=== PATIENT | female | born 1970 ===

== ENCOUNTER 2019-03-01 19:32 | Emergency (ER) | payer OTHER ==
--- NOTE | 2019-03-01 20:59 | Event Note ---
ED Screening Note Date of service: 03/01/19 Time: 20:52 ED Screening Note: This is a 48 y.o. F. that presents to the ER with nosebleed from right nare and mouth intermittently 2 weeks. Reports otalgia bilaterally. Bleeding resolved. PMH of HTN Patient went to [place] for 3 months and returned 12/30/2018. Reports issues with blood pressure while in [place] and saw a doctor twice there. This initial assessment/diagnostic orders/clinical plan/treatment(s) is/are subject to change based on patients health status, clinical progression and re- assessment by fellow clinical providers in the ED. Further treatment and workup at subsequent clinical providers discretion. Patient/guardian urged not to elope from the ED as their condition may be serious if not clinically assessed and managed. Initial orders include: Labs
[2019-03-01 21:28] LABS: Basophils % (Auto) 0.4 % (0.0-1.8); Eosinophils # (Auto) 0.4 K/mm3 (0.0-0.4); Eosinophils % (Auto) 3.3 % (0.0-4.3); Lymphocytes # (Auto) 2.5 K/mm3 (1.2-5.4); Lymphocytes % (Auto) 22.3 % (13.4-35.0); Mean Corpuscular HGB Conc 33 % (30-34); Mean Corpuscular Volume 86 fl (79-97); Monocytes # (Auto) 0.7 K/mm3 (0.0-0.8); Monocytes % (Auto) 6.4 % (0.0-7.3); Platelet Count 379 K/mm3 (140-440); Red Blood Count 4.51 M/mm3 (3.65-5.03)
[2019-03-01 21:53] LABS: Alanine Aminotransferase 28 units/L (7-56); Albumin 3.9 g/dL (3.9-5); BUN/Creatinine Ratio 17; Blood Urea Nitrogen 12 mg/dL (7-17); Calcium 9.2 mg/dL (8.4-10.2); Hemolysis Index 12
--- NOTE | 2019-03-01 23:02 | Emergency Department Report ---
ED Headache HPI - General Chief Complaint: Nosebleed Stated Complaint: NOSE BLEED Time Seen by Provider: 03/01/19 20:52 Source: patient, family Exam Limitations: no limitations - History of Present Illness Initial Comments: Patient was seen by provider in triage and complained of nasal bleed after returning from [place] where she spent 3 months and returned 12/30/2018. Patient reported to triage provider that her blood pressure was elevated in [place] and she saw Dr. trammell there and was placed on blood pressure medication which she does have. She reported bleeding from her right nose to triage provider. No documented complain of headache, or any documented abnormal gait and it was reported that patient came in with normal gait and was aggressive with treatment at staff. Patient now complaining of headache from mid to posterior head and reports that she had nosebleed 3 weeks ago from right near, one week ago and 3 days ago. No nosebleed prior to coming to the emergency room today. He denies any blurred vision, nausea or vomiting. Denies any neck pain or stiffness. She denies any fever or chills. No medication taken prior to coming to the emergency room but said she took her blood pressure medication today. Blood pressure initially was elevated in triage area and it was retaken by triage nurse and at 140/94. Denies any numbness or tingling to extremities. Timing/Duration: other (3 weeks ago and reports headache now.) Quality: severe, achy, constant Head Injury Location: occipital, other (meds scalp area and occipital lateral) Associated Symptoms: other (right nosebleed). denies: confusion, fatigue, facial pain, fever/chills, flushing, loss of consciousness, nausea/vomiting, nasal congestion, nasal drainage, numbness in legs/feet, rash, seizures, sinus infection, stiff neck, vision changes, weakness Allergies/Adverse Reactions: Allergies No Known Allergies Allergy (Unverified 03/01/19 19:36) Home Medications: Ambulatory Orders Acetaminophen [Acetaminophen TAB] 500 mg PO Q8H PRN #9 tablet 03/02/19 cephALEXin [Keflex] 500 mg PO Q12HR 7 Days #14 cap 03/02/19 ED Review of Systems ROS: Stated complaint: MOUTH/NOSE BLEED Other details as noted in HPI Constitutional: denies: chills, fever, weakness ENT: epistaxis. denies: throat pain, dental pain, congestion Respiratory: denies: cough, shortness of breath, SOB with exertion, SOB at rest, wheezing Cardiovascular: denies: chest pain, palpitations, edema, syncope Gastrointestinal: denies: nausea, vomiting, hematemesis, hematochezia Genitourinary: denies: urgency, dysuria, frequency, hematuria Musculoskeletal: denies: back pain, joint swelling, arthralgia, myalgia Skin: denies: rash Neurological: headache. denies: weakness, numbness, paresthesias, confusion, abnormal gait, vertigo Psychiatric: denies: anxiety Hematological/Lymphatic: denies: easy bleeding, easy bruising, swollen glands ED Past Medical Hx - Past Medical History Previous Medical History?: Yes Hx Hypertension: Yes - Surgical History Past Surgical History?: Yes Additional Surgical History: tubaligation - Family History Family history: hypertension - Social History Smoking Status: Never Smoker Substance Use Type: None - Medications Home Medications: Home Medications Medication Instructions Recorded Confirmed Last Taken Type Acetaminophen [Acetaminophen TAB] 500 mg PO Q8H PRN #9 tablet 03/02/19 Unknown Rx cephALEXin [Keflex] 500 mg PO Q12HR 7 Days #14 cap 03/02/19 Unknown Rx ED Physical Exam - General Limitations: No Limitations General appearance: alert, in no apparent distress - Head Head exam: Present: atraumatic, normocephalic, normal inspection - Expanded Head Exam Expanded Head exam: Absent: laceration, abrasion, contusion, hematoma, racoon eyes, iglesias's sign, general tenderness, tenderness of temporal artery, CSF rhinorrhea, CSF otorrhea - Eye Eye exam: Present: normal appearance, PERRL, EOMI. Absent: nystagmus, periorbital swelling, periorbital tenderness Pupils: Present: normal accommodation - ENT ENT exam: Present: normal exam, normal orophraynx, mucous membranes moist, TM's normal bilaterally, normal external ear exam - Neck Neck exam: Present: normal inspection, full ROM, other (no C-spine tenderness.). Absent: tenderness, meningismus, lymphadenopathy - Respiratory Respiratory exam: Present: normal lung sounds bilaterally. Absent: respiratory distress, chest wall tenderness - Cardiovascular Cardiovascular Exam: Present: regular rate, normal rhythm, normal heart sounds - GI/Abdominal GI/Abdominal exam: Present: soft, normal bowel sounds. Absent: distended, tenderness, guarding, rebound, rigid - Extremities Exam Extremities exam: Present: normal inspection, full ROM, normal capillary refill, other (No cce. + 2 pulses in all extremities, no neurovascular compromise). Absent: tenderness, pedal edema, joint swelling, calf tenderness - Back Exam Back exam: Present: normal inspection, full ROM. Absent: tenderness, CVA tenderness (R), CVA tenderness (L), muscle spasm, paraspinal tenderness, vertebral tenderness, rash noted - Neurological Exam Neurological exam: Present: alert, oriented X3, normal gait, reflexes normal. Absent: motor sensory deficit - Expanded Neurological Exam Expanded Neurological exam: Absent: innattentive, memory loss-remote event, memory loss- recent event, ataxia, receptive aphasia, expressive aphasia, total aphasia, tremor, protecting the airway Patient oriented to: Present: person, place, time Speech: Present: fluid speech Cranial nerves: EOM's Intact: Normal, Gag Reflex: Normal, Tongue Deviation: Normal, Nystagmus: Normal, Facial Sensation: Normal Ataxia: Absent: yes Cerebellar function: Finger to Nose: Normal, Romberg: Abnormal Right Upper motor neuron: Pronator Drift: Normal, Sensory Extinction: Normal Sensory exam: Upper Extremity Light Touch: Normal, Upper Extremity Pin Prick: Normal, Upper Extremity Temperature: Normal, UE 2 Point Discrimination: Normal, Lower Extremity Light Touch: Normal, Lower Extremity Pin Prick: Normal, Lower Extremity Temperature: Normal, LE 2 Point Discrimination: Normal Motor strength exam: RUE: 5, LUE: 5, RLE: 5, LLE: 5 DTR: bicep (R): 2+, bicep (L): 2+, tricep (R): 2+, tricep (L): 2+, knee (R): 2+, knee (L): 2+, ankle (R): 2+, ankle (L): 2+ Best Eye Response (Cheri): (4) open spontaneously Best Motor Response (Cheri): (6) obeys commands Best Verbal Response ([place]): (5) oriented [place] Total: 15 - Psychiatric Psychiatric exam: Present: normal affect, normal mood - Skin Skin exam: Present: warm, dry, intact, normal color. Absent: rash ED Course Vital Signs 03/01/19 03/01/19 20:53 20:57 Temperature 99.4 F Pulse Rate 98 H 86 Respiratory 18 Rate Blood Pressure 166/103 Blood Pressure 140/94 [Right] O2 Sat by Pulse 99 Oximetry Vital Signs 03/01/19 03/01/19 03/02/19 20:53 20:57 03:07 Temperature 99.4 F 98.3 F Pulse Rate 98 H 86 66 Respiratory 18 20 Rate Blood Pressure 166/103 Blood Pressure 140/94 114/74 [Right] O2 Sat by Pulse 99 99 Oximetry - Reevaluation(s) Reevaluation #1: 03/01/19 23:04 Patient examined and found to have abnormally in neurological exam, new onset headache, elevated blood pressure and report of new onset nosebleed. Patient tests CT scan and other labs. Her CMP and CBC is stable. No active nosebleed at present. BP elevated in triage but better now. I spoke with Dr. Quiñones regarding patient Reevaluation #2: 03/02/19 00:35 Patient is stable and CT scan negative findings. Tylenol 3 to be given. Neurological exam intact. Reevaluation #3: 03/02/19 02:23 Patient is stable and normal neurological exam. She has no headache at present and she says she is feeling fine. Urinalysis positive for urinary tract infection and will be started on antibiotic. Patient does not have a primary care doctor and I discussed further that she is to follow-up with primary care doctor that I refer her to give her some outside Medical Center and outpatient on-call primary care physician. ED Medical Decision Making - Lab Data Result diagrams: 03/01/19 21:08 03/01/19 21:08 Lab Results 03/01/19 03/01/19 03/01/19 Range/Units 21:08 21:08 23:24 WBC 11.3 H (4.5-11.0) K/mm3 RBC 4.51 (3.65-5.03) M/mm3 Hgb 13.0 (10.1-14.3) gm/dl Hct 39.0 (30.3-42.9) % MCV 86 (79-97) fl MCH 29 (28-32) pg MCHC 33 (30-34) % RDW 14.0 (13.2-15.2) % Plt Count 379 (140-440) K/mm3 Lymph % (Auto) 22.3 (13.4-35.0) % [place] % (Auto) 6.4 (0.0-7.3) % Eos % (Auto) 3.3 (0.0-4.3) % Baso % (Auto) 0.4 (0.0-1.8) % Lymph # 2.5 (1.2-5.4) K/mm3 [place] # 0.7 (0.0-0.8) K/mm3 Eos # 0.4 (0.0-0.4) K/mm3 Baso # 0.0 (0.0-0.1) K/mm3 Seg Neutrophils % 67.6 (40.0-70.0) % Seg Neutrophils # 7.7 (1.8-7.7) K/mm3 APTT 27.0 (24.2-36.6) Sec. Sodium 138 (137-145) mmol/L Potassium 3.7 (3.6-5.0) mmol/L Chloride 100.8 (98-107) mmol/L Carbon Dioxide 28 (22-30) mmol/L Anion Gap 13 mmol/L BUN 12 (7-17) mg/dL Creatinine 0.7 (0.7-1.2) mg/dL Estimated GFR > 60 ml/min BUN/Creatinine Ratio 17 % Glucose 107 H (65-100) mg/dL Calcium 9.2 (8.4-10.2) mg/dL Total Bilirubin 0.20 (0.1-1.2) mg/dL AST 19 (5-40) units/L ALT 28 (7-56) units/L Alkaline Phosphatase 84 (35-129) units/L Total Protein 7.6 (6.3-8.2) g/dL Albumin 3.9 (3.9-5) g/dL Albumin/Globulin Ratio 1.1 % - Radiology Data Radiology results: report reviewed CT scan of head without contrast dictated by radiologist report reviewed by myself. See below for details Findings [facility] [address] [place] [address] Cat Scan Report Signed Patient: DEBBIE KUMAR MR#: [id number] : 1970 Acct:[id number] Age/Sex: 48 / F ADM Date: 03/01/19 Loc: ED Attending Dr: Ordering Physician: MARCELINA VEGA Date of Service: 03/01/19 Procedure(s): CT head/brain wo con Accession Number(s): [id number] cc: MARCELINA VEGA CT HEAD WITHOUT CONTRAST INDICATION: mid to post headache , dizziness, epistaxis. TECHNIQUE: All CT scans at this location are performed using CT dose reduction for ALARA by means of automated exposure control. COMPARISON: None available. FINDINGS: HEMORRHAGE: None. EXTRA-AXIAL SPACES: Normal in size and morphology for the patient's age. VENTRICULAR SYSTEM: Normal in size and morphology for the patient's age. BRAIN PARENCHYMA: No acute findings. MIDLINE SHIFT OR HERNIATION: None. ORBITS: Normal as visualized. SOFT TISSUES OF HEAD: Normal. CALVARIUM: Normal. VISUALIZED PARANASAL SINUSES AND MASTOID AIR CELLS: There is mild fluid in the ethmoid air cells. The paranasal sinuses are otherwise clear. ADDITIONAL FINDINGS: None. IMPRESSION: 1. No acute intracranial abnormality. Signer Name: Henrik Ignacio MD Signed: 03/01/2019 11:29 PM Workstation Name: [id number] Transcribed By: SW Dictated By: Henrik Ignacio MD Electronically Authenticated By: Henrik Ignacio MD Signed Date/Time: 03/01/19 2329 DD/DT: 03/01 - Medical Decision Making This is a 48-year-old female here found to have headache and urinary tract infection. Patient presented to the ER with conflicting stories where she told triage nurse and provider today she was having nosebleeds and mouth bleed. Triage nurse and provider reference patient without any abnormal gait and triage area. Upon evaluating patient, she reports that she is having headache and she reports that she had went to [place] and came back on 12/30/2018 and she reports to me that she had elevated blood pressure and was started on blood pressure medication reported to triage nurse that she has a history of high blood pressure. Patient has blood pressure medication that was prescribed in [place] with her and she states that she took medication. It was reported the patient was upset and wanted to be seen in triage area and was yelling at personnel when she first arrived and blood pressure was initially elevated and nurse reported she took blood pressure and blood pressure was better prior to coming back to the ED area. My initial neurological exam, patient holding her head. Romberg positive because patient report that she felt dizzy and appeared to be off balance but subsequent neurological exam was normal after patient found out it her CT scan was normal. She was given Tylenol [address] scan resulted and she said her headache is gone. She had no episode of nasal bleedi ng or no signs of nasal bleed. Her vital signs are stable she is afebrile. Patient will urinary tract infection and urine culture sent. Patient will be sent home on Keflex and Tylenol plain and to follow up with neurologist and also primary care physician. I discussed with her that she will need to call and Sunday to schedule an appointment if her symptoms return she needs to return to the emergency room. - Differential Diagnosis ICH versus ACH abnormality, sinusitis, rhinitis Critical care attestation.: If time is entered above; I have spent that time in minutes in the direct care of this critically ill patient, excluding procedure time. ED Disposition Clinical Impression: Acute cystitis with hematuria Headache Qualifiers: Headache type: unspecified Headache chronicity pattern: episodic headache Int ractability: not intractable Qualified Code(s): R51 - Headache Disposition: - TO HOME OR SELFCARE Is pt being admited?: No Does the pt Need Aspirin: No Condition: Stable Instructions: Urinary Tract Infection in Women (ED), Acute Headache (ED) Additional Instructions: Please follow-up with primary care physician on 03/03/2019. Please see referral on discharge instruction paperwork Take Tylenol for headache and Keflex for urinary tract infection If you condition worsens, please return to emergency room. Follow-up with neurologist as instructed If nosebleed, headache that is not relieved with Tylenol, dizziness, numbness or tingling to extremities, blurred vision, fever or chills or neck pain or facial pain, facial numbness, please return to emergency room if AP Prescriptions: Acetaminophen [Acetaminophen TAB] 500 mg PO Q8H PRN #9 tablet PRN Reason: for headache cephALEXin [Keflex] 500 mg PO Q12HR 7 Days #14 cap Referrals: LUCHO DAWSON MD [Primary Care Provider] - 03/03/19 REKHA GROVES MD [Staff Physician] - 03/04/19 MARTA MAI MD [Staff Physician] - 03/03/19 Forms: Accompanied Note, Work/School Release Form(ED)
--- NOTE | 2019-03-01 23:34 | Cat Scan Report ---
CT HEAD WITHOUT CONTRAST INDICATION: mid to post headache , dizziness, epistaxis. TECHNIQUE: All CT scans at this location are performed using CT dose reduction for ALARA by means of automated e xposure control. COMPARISON: None available. FINDINGS: HEMORRHAGE: None. EXTRA-AXIAL SPACES: Normal in size and morphology for the patient's age. VENTRICULAR SYSTEM: Normal in size and morphology for the patient's age. BRAIN PARENCHYMA: No acute findings. MIDLINE SHIFT OR HERNIATION: None. ORBITS: Normal as visualized. SOFT TISSUES OF HEAD: Normal. CALVARIUM: Normal. VISUALIZED PARANASAL SINUSES AND MASTOID AIR CELLS: There is mild fluid in the ethmoid air cells. The paranasal sinuses are otherwise clear. ADDITIONAL FINDINGS: None. IMPRESSION: 1. No acute intracranial abnormality. Signer Name: Henrik Ignacio MD Signed: 03/01/2019 11:29 PM Workstation Name: [id number]
[2019-03-02] MEDS ORDERED: TYLENOL #3 PO ONE (00:34)
[2019-03-02 02:11] LABS: Bacteria,Urine 1+ /HPF (Negative); Bilirubin,Urine NEG (Negative); Blood,Urine SM (Negative); Color,Urine Yellow (Yellow); Mucus,Urine FEW /HPF; Protein,Urine <15 mg/dL mg/dL (Negative); Urobilinogen,Urine < 2.0 mg/dL (<2.0)
[2019-03-02 03:08] VITALS: BP 114/74
== END 2019-03-02 03:42 | disposition home or self-care (01) ==
LOC: ED 19:32
DX: R51 Headache (principal); R04.0 Epistaxis; N30.01 Acute cystitis with hematuria; I10 Essential (primary) hypertension; Z98.51 Tubal ligation status
CPT/HCPCS: 36415; 70450; 80053; 81001; 85025; 85730; 87086

== ENCOUNTER 2020-04-07 09:38 | Emergency (ER) | payer OTHER ==
[2020-04-07 09:51] VITALS: BP 147/93
--- NOTE | 2020-04-07 14:41 | Emergency Department Report ---
ED Back Pain/Injury HPI - General Chief Complaint: Extremity Problem,Nontraumatic Stated Complaint: RT SIDE PAIN Time Seen by Provider: 04/07/20 13:18 Source: patient Limitations: No Limitations - History of Present Illness Initial Comments: 49-year-old female presents emerged department complaining of pain to the right hip lower back area with sharp shooting burning pain that runs down the right leg off and on for the last 3 to 4 days with no known traumatic occurrences. She reports no fever, chills, sweats, no saddle paresthesia, no loss of bowel or bladder, no numbness or tingling. - Related Data Previous Rx's Medication Instructions Recorded Last Taken Type methOCARBAMOL [Robaxin TAB] 750 mg PO Q8H #21 tablet 04/07/20 Unknown Rx predniSONE [Deltasone] 50 mg PO QDAY #5 tab 04/07/20 Unknown Rx Allergies Allergy/AdvReac Type Severity Reaction Status Date / Time No Known Allergies Allergy Verified 05/20/19 12:37 ED Review of Systems ROS: Stated complaint: RT SIDE PAIN Other details as noted in HPI Comment: All other systems reviewed and negative ED Past Medical Hx - Past Medical History Previous Medical History?: Yes Hx Hypertension: Yes - Surgical History Past Surgical History?: Yes Additional Surgical History: tubaligation - Social History Smoking Status: Never Smoker Substance Use Type: None - Medications Home Medications: Home Medications Medication Instructions Recorded Confirmed Last Taken Type methOCARBAMOL [Robaxin TAB] 750 mg PO Q8H #21 tablet 04/07/20 Unknown Rx predniSONE [Deltasone] 50 mg PO QDAY #5 tab 04/07/20 Unknown Rx ED Physical Exam - General Limitations: No Limitations General appearance: alert, in no apparent distress - Head Head exam: Present: atraumatic, normocephalic - Eye Eye exam: Present: normal appearance, PERRL, EOMI Pupils: Present: normal accommodation - ENT ENT exam: Present: normal exam, normal orophraynx, mucous membranes moist, TM's normal bilaterally - Neck Neck exam: Present: normal inspection, full ROM. Absent: tenderness, lymphadenopathy - Respiratory Respiratory exam: Present: normal lung sounds bilaterally. Absent: respiratory distress, chest wall tenderness, accessory muscle use - Cardiovascular Cardiovascular Exam: Present: regular rate, normal rhythm. Absent: systolic murmur, diastolic murmur, rubs, gallop - GI/Abdominal GI/Abdominal exam: Present: soft, normal bowel sounds - Extremities Exam Extremities exam: Present: normal inspection, tenderness, normal capillary refill. Absent: calf tenderness - Expanded Lower Extremity Exam Right Hip exam: Present: normal inspection, full ROM Upper Leg exam: Present: normal inspection, full ROM Knee exam: Present: normal inspection, full ROM Lower Leg exam: Present: normal inspection, full ROM Neuro vascular tendon exam: Present: no vascular compromise. Absent: pulse deficit, abnormal cap refill, motor deficit, sensory deficit, foot drop - Back Exam Back exam: Present: normal inspection, tenderness, paraspinal tenderness, other (Tenderness to the right sacroiliac joint. Straight leg raise and Nevaeh's test is negative tenderness along the piriformis muscle and sciatic region.). Absent: vertebral tenderness - Neurological Exam Neurological exam: Present: alert, oriented X3, CN II-XII intact, reflexes normal, other (No clonus, no foot drop). Absent: motor sensory deficit - Psychiatric Psychiatric exam: Present: normal affect, normal mood - Skin Skin exam: Present: warm, dry, intact, normal color. Absent: rash ED Course Vital Signs 04/07/20 09:48 Temperature 98 F Pulse Rate 74 Respiratory 16 Rate Blood Pressure 147/93 O2 Sat by Pulse 98 Oximetry ED Medical Decision Making - Medical Decision Making Pt presents the emergency department complaining of back pain most consistent with lumbar go with sciatica back Pain Most Consistent with Strain/Contusion. Differential Diagnosis Includes Lumbar Go Versus Musculoskeletal Spasm, Strain Versus Sciatica. No Back Pain Red Flags on History or Physical. Presentation Not Consistent with Malignancy, Fracture, Cauda Equina, Abdominal Aortic Aneurysm, Viscus Perforation, Pulmonary Embolism, Renal Colic, Pyelonephritis. Patient reports no B symptoms, trauma trauma, incontinence, saddle anesthesia, distal weakness, urinary symptoms and is a febrile. Critical care attestation.: If time is entered above; I have spent that time in minutes in the direct care of this critically ill patient, excluding procedure time. ED Disposition Clinical Impression: Sciatic leg pain Disposition: - TO HOME OR SELFCARE Is pt being admited?: No Does the pt Need Aspirin: No Condition: Stable Instructions: Lumbar Radiculopathy (ED) Prescriptions: predniSONE [Deltasone] 50 mg PO QDAY #5 tab methOCARBAMOL [Robaxin TAB] 750 mg PO Q8H #21 tablet Referrals: LUCHO DAWSON MD [Primary Care Provider] - 3-5 Days
== END 2020-04-07 14:48 | disposition home or self-care (01) ==
LOC: ED 09:38
DX: M79.604 Pain in right leg (principal); M54.31 Sciatica, right side; I10 Essential (primary) hypertension; Z98.51 Tubal ligation status; Z79.899 Other long term (current) drug therapy
CPT/HCPCS: 99282

== ENCOUNTER 2020-11-30 08:58 | Emergency (ER) | payer OTHER ==
--- NOTE | 2020-11-30 10:59 | Emergency Department Report ---
- General Chief Complaint: Headache Stated Complaint: SORE THROAT Time Seen by Provider: 11/30/20 10:49 Source: patient Mode of arrival: Ambulatory Limitations: No Limitations - History of Present Illness Initial Comments: Patient is a 50-year-old female presents emergency room complaints of URI symptoms that began 2 days ago. She has associated headache, chills, couple episodes of vomiting, nasal congestion, rhinorrhea, earache, sore throat, dry cough. She denies any chest pain, shortness of breath, diarrhea, abdominal pain, urinary symptoms. No past medical history. No allergies to medications. She denies any known sick contacts. She denies any recent travel. She states that she is only taken Tylenol for her symptoms. - Related Data Previous Rx's Medication Instructions Recorded Last Taken Type methOCARBAMOL [Robaxin TAB] 750 mg PO Q8H #21 tablet 04/07/20 Unknown Rx predniSONE [Deltasone] 50 mg PO QDAY #5 tab 04/07/20 Unknown Rx Fluticasone [Flonase] 1 spray NS QDAY #1 bottle 11/30/20 Unknown Rx Loratadine 10 mg PO DAILY #10 tablet 11/30/20 Unknown Rx Ondansetron [Zofran Odt] 4 mg PO Q8HR PRN #10 tab.rapdis 11/30/20 Unknown Rx guaiFENesin ER [Mucinex ER] 600 mg PO BID 7 Days #14 tablet.er 11/30/20 Unknown Rx Allergies Allergy/AdvReac Type Severity Reaction Status Date / Time No Known Allergies Allergy Verified 05/20/19 12:37 ED Review of Systems ROS: Stated complaint: SORE THROAT Other details as noted in HPI Comment: All other systems reviewed and negative ED Past Medical Hx - Past Medical History Hx Hypertension: Yes - Surgical History Additional Surgical History: tubaligation - Social History Smoking Status: Never Smoker Substance Use Type: None - Medications Home Medications: Home Medications Medication Instructions Recorded Confirmed Last Taken Type methOCARBAMOL [Robaxin TAB] 750 mg PO Q8H #21 tablet 04/07/20 Unknown Rx predniSONE [Deltasone] 50 mg PO QDAY #5 tab 04/07/20 Unknown Rx Fluticasone [Flonase] 1 spray NS QDAY #1 bottle 11/30/20 Unknown Rx Loratadine 10 mg PO DAILY #10 tablet 04/06/21 Unknown Rx Ondansetron [Zofran Odt] 4 mg PO Q8HR PRN #10 tab.rapdis 11/30/20 Unknown Rx guaiFENesin ER [Mucinex ER] 600 mg PO BID 7 Days #14 tablet.er 11/30/20 Unknown Rx ED Physical Exam - General Limitations: No Limitations General appearance: alert, in no apparent distress - Head Head exam: Present: atraumatic, normocephalic - Eye Eye exam: Present: normal appearance - ENT ENT exam: Present: normal orophraynx, mucous membranes moist, TM's normal bilaterally, normal external ear exam - Respiratory Respiratory exam: Present: normal lung sounds bilaterally. Absent: respiratory distress, wheezes, rales, rhonchi, stridor, chest wall tenderness, accessory muscle use, decreased breath sounds, prolonged expiratory - Cardiovascular Cardiovascular Exam: Present: regular rate, normal rhythm, normal heart sounds. Absent: systolic murmur, diastolic murmur, rubs, gallop - Neurological Exam Neurological exam: Present: alert, oriented X3 - Psychiatric Psychiatric exam: Present: normal affect, normal mood - Skin Skin exam: Present: warm, dry, intact ED Course Vital Signs 11/30/20 11/30/20 09:03 11:05 Temperature 98.4 F Pulse Rate 91 H 85 Respiratory 20 20 Rate Blood Pressure 150/107 184/91 [Right] O2 Sat by Pulse 95 97 Oximetry ED Medical Decision Making - Medical Decision Making Patient is a 50-year-old female presents emergency room complaints of URI symptoms that began 2 days ago. She has associated headache, chills, couple episodes of vomiting, nasal congestion, rhinorrhea, earache, sore throat, dry cough. She denies any chest pain, shortness of breath, diarrhea, abdominal pain, urinary symptoms. No past medical history. No allergies to medications. She denies any known sick contacts. She denies any recent travel. She states that she is only taken Tylenol for her symptoms. Vitals with elevated blood pressure, otherwise vitals are stable, discussed the importance of primary care follow-up, keeping a blood pressure log, discussed lifestyle modifications such as exercise and eating a low-sodium diet. Patient is afebrile, no tachycardia, no hypoxia. Symptoms have only been going on for 2 days. No abnormality on physical examination as documented in chart, breath sounds are clear bilaterally. Symptoms most consistent with viral URI. Patient is presenting with the symptoms during COVID-19 pandemic, discussed COVID-19 with patient, discuss strict return precautions, discussed outpatient testing, discussed self quarantine. Patient given prescriptions for symptomatic treatment. Advised patient Please take medication as prescribed. Please increase your fluid intake over the next several days. gargle warm salt water, drink warm tea, eat warm soup broth. May take Tylenol or ibuprofen as needed for fever or body aches or headache. Return to emergency room immediately for any new or worsening symptoms including but not limited to difficulty breathing, shortness of breath, severe chest pain, unable to tolerate by mouth intake, etc. Please self quarantine for 10 days from the onset of your symptoms. Please do not go out in public. If you are around others at home please wear a mask. If you need to cough or sneeze please do so in a napkin and immediately throw it away and immediately wash your hands. Wash your hands frequently. Wipe everything down. Recommend for you to get COVID-19 testing, may have this done at primary care doctor, health department, [facility], etc. Critical care attestation.: If time is entered above; I have spent that time in minutes in the direct care of this critically ill patient, excluding procedure time. ED Disposition Clinical Impression: Viral URI Disposition: DC- TO HOME OR SELFCARE Is pt being admited?: No Does the pt Need Aspirin: No Condition: Stable Instructions: Viral Respiratory Infection Additional Instructions: Please take medication as prescribed. Please increase your fluid intake over the next several days. gargle warm salt water, drink warm tea, eat warm soup broth. May take Tylenol or ibuprofen as needed for fever or body aches or headache. Return to emergency room immediately for any new or worsening symptoms including but not limited to difficulty breathing, shortness of breath, severe chest pain, unable to tolerate by mouth intake, etc. Please self quarantine for 10 days from the onset of your symptoms. Please do not go out in public. If you are around others at home please wear a mask. If you need to cough or sneeze please do so in a napkin and immediately throw it away and immediately wash your hands. Wash your hands frequently. Wipe everything down. Recommend for you to get COVID-19 testing, may have this done at primary care doctor, health department, [facility], etc. Prescriptions: Fluticasone [Flonase] 1 spray NS QDAY #1 bottle Loratadine 10 mg PO DAILY #10 tablet guaiFENesin ER [Mucinex ER] 600 mg PO BID 7 Days #14 tablet.er Ondansetron [Zofran Odt] 4 mg PO Q8HR PRN #10 tab.rapdis PRN Reason: vomiting Referrals: PRIMARY CARE,MD [Primary Care Provider] - 2-3 Days Time of Disposition: 10:57 Print Language: GRENA[place]
[2020-11-30 11:06] VITALS: BP 184/91
== END 2020-11-30 11:08 | disposition home or self-care (01) ==
LOC: ED 08:58
DX: J06.9 Acute upper respiratory infection, unspecified (principal); B97.89 Other viral agents as the cause of diseases classified elsewhere; I10 Essential (primary) hypertension; F17.200 Nicotine dependence, unspecified, uncomplicated; Z79.899 Other long term (current) drug therapy; Z98.51 Tubal ligation status
CPT/HCPCS: 99282